=== PATIENT | male | born 1975 | race Hispanic/Latino ===

== ENCOUNTER 2025-07-04 09:12 | Emergency (ER) | payer SELFPAY ==
[~2025-07-04] VITALS: Ht 162.6 cm; Wt 68.7 kg
[2025-07-04 09:25] VITALS: PULSE 117; RESP 20; TEMP 98.8
[2025-07-04 10:21] VITALS: BP 140/91; PULSE 92; RESP 20; O2SAT 99
== END 2025-07-04 10:20 | disposition home or self-care (01) ==
LOC: FSED 09:15
DX: N40.1 Benign prostatic hyperplasia with lower urinary tract symptoms (principal); R33.8 Other retention of urine; N13.30 Unspecified hydronephrosis; N13.4 Hydroureter
CPT/HCPCS: 51700; 99284

== ENCOUNTER 2025-07-05 16:31 | Emergency (ER) | payer SELFPAY ==
[~2025-07-05] VITALS: Ht 162.6 cm; Wt 66.5 kg
[2025-07-05 16:40] VITALS: PULSE 74; RESP 18; TEMP 98.9; O2SAT 99
== END 2025-07-05 16:55 | disposition home or self-care (01) ==
LOC: FSED 16:39
DX: Z46.6 Encounter for fitting and adjustment of urinary device (principal); Z87.442 Personal history of urinary calculi
CPT/HCPCS: 99284